=== PATIENT | female | born 1990 | race Caucasian/White ===

== ENCOUNTER 2016-11-06 18:37 | Inpatient (IN) | payer MEDICAID ==
[2016-11-06] VITALS (47 sets, daily range): BP systolic 92–152; BP diastolic 58–107; PULSE 65–94; RESP 18
[~2016-11-06 18:37] MED LIST: ACYC400T PO; PREN1CAP28; VITATAB
[2016-11-06] MEDS ORDERED: LACTATED RINGER'S 1000 ML INJ 1,000 ML IV PRN (19:34)
--- NOTE | 2016-11-06 19:34 | HHI.HP ---
History & Physical H&P Travel History International Travel<30 Days: No Contact w/Intl Traveler<30Days: No Known Affected Area: No History of Present Illness HPI Patient is a 26-year-old 2 para 1 patient's EDC is November 04, 2016 presently at 40 weeks and 2 days she presents with the chief complaint of irregular contractions she was seen in the office today where she was 5 cm presently now she is 6 cm 70% effaced at a -2 station vertex presentation membranes are intact care with care for women her problem list includes HSV she was placed on acyclovir prophylaxis at 36 weeks presently has no lesions in her at last outbreak was December 2007 She is Rh- and received RhoGAM at 28 weeks Ascus Pap Abnormal one-hour GTT three-hour was normal GBS is negative History (Limited) History Past Medical History Narrative Medical No known drug allergies no major medical problems Obstetric History Obstetric History First baby was born August [id number] at 40 weeks 7 lbs. 6 oz. male infant in labor for 15 hours uncomplicated Past Surgical History Surgical History: No Previous Surgery Family History Family History: Negative Social History Alcohol Use: No Tobacco Use: Yes Substance Abuse: No Allergies-Medications Allergies-Medications (Allergen,Severity, Reaction): Coded Allergies: No Known Allergies (Unverified , 11/06/16) Home Meds Active Scripts Acyclovir 400 Mg [id number] Mg PO BID #60 TAB Ref 4 Prov:Danyell Perez 09/25/16 Reported Medications Mv & Min W/Fe Fumarat ( Multi + Dha 27-0.8-250 mg)1 Cap Cap 08/28/16 Iron W/ Vitamins (Vitafol)1 Tab Tab 08/28/16 ROS Review of Systems Gastrointestinal: Abdominal Pain (irregular contractions) Physical Exam Physical Exam Narrative GENERAL: Well-nourished, well-developed patient. Alert oriented 3 and cooperative in moderate distress secondary to uterine contractions SKIN: Warm and dry. HEAD: Normocephalic and atraumatic. EYES: No scleral icterus. No injection or drainage. Conjunctiva was pink ENT: No nasal drainage noted. Mucous membranes pink. Airway patent. Tongue ring present NECK: Supple, trachea midline. No JVD. CARDIOVASCULAR: Regular rate and rhythm without murmurs, gallops, or rubs. RESPIRATORY: Breath sounds equal bilaterally. No accessory muscle use. ABDOMEN/GI: Gravid term estimated weight 7-1/2 pounds Gravid to [-] weeks size term Fundal Height: [-] GENITOURINARY: External Genitalia: intact and normal in appearance BUS glands: [-] Cervix: [-] Midline Dilatation: [-] 6 cm Effacement: [-] 50% effaced Station: [-] -2 station Presentation: [-] Vertex Membranes: [intact Uterine Contractions: [-] Irregular FHT's: Category: [-] 1 Baseline: [-]140 Reactive: [-] + Variability: [-] Moderate variability Decels: [-] Patient very active will reevaluate for decelerations EXTREMITIES: No cyanosis or edema. 2+ reflexes NEUROLOGICAL: Awake and alert. Motor and sensory grossly within normal limits. Five out of 5 muscle strength in all muscle groups. Normal speech. Data Data Data Vital Signs Reviewed: Yes (123/82 she is afebrile) [facility] Medical Record Reviewed: Yes Interpretation(s) 26-year-old at 40 weeks and 2 days Active labor postdates Cigarette smoker History of HSV no active lesions Desires an epidural GBS is negative Plan Admit External monitoring IV fluid hydration CBC type and screen Possible Pitocin augmentation Anticipate vaginal delivery Diagnosis Diagnosis: Primary Impression: Post-dates , delivered, current hospitalization Additional Impressions: History of BAM positive for HSV Cigarette smoker one half pack a day or less Danielle Moise MD Nov 06, 2016 19:33 Danielle Moise MD Nov 06, 2016 19:34
[2016-11-06] MEDS ORDERED: ONDANSETRON HCL 4 MG/2 ML VIAL IV PRN (19:45)
[2016-11-06] MEDS ORDERED: CITRIC ACID-SODIUM CITRATE LIQ 30 ML UDC PO SCH (19:45)
[2016-11-06] MEDS ORDERED: SODIUM CHLORID 0.9% 500 ML INJ 500 ML IV PRN (19:45)
[2016-11-06] MEDS ORDERED: LIDOCAINE HCL 1% 50 ML VIAL I-DERMAL PRN (19:45)
[2016-11-06] MEDS ORDERED: LIDOCAINE HCL 1% 50 ML VIAL INFIL PRN (19:45)
[2016-11-06] MEDS ORDERED: MINERAL OIL 10 ML VIAL TOPICAL PRN (19:45)
[2016-11-06] MEDS ORDERED: OXYTOCIN 30 UNITS-500ML PREMIX 500 ML IV ONE (19:45)
[2016-11-06] MEDS ORDERED: SODIUM CHLOR 0.9% 1000 ML INJ 1,000 ML IV PRN (19:54)
[2016-11-06 19:58] LABS: AUTOMATED NEUTROPHIL # 9.4 TH/MM3 (1.8-7.7); BASOPHIL % 0.3 % (0.0-2.0); EOSINOPHIL # 0.2 TH/MM3 (0-0.4); EOSINOPHIL % 1.2 % (0.0-4.0); HEMATOCRIT 35.7 % (35.0-46.0); HEMO FLAGS DIFF FINAL; LYMPH % 17.9 % (9.0-44.0); LYMPHOCYTE # 2.3 TH/MM3 (1.0-4.8); MEAN CELL VOLUME 87.4 FL (80.0-100.0); MEAN CORPUSCULAR HEMOGLOBIN 29.7 PG (27.0-34.0); MONO % 8.6 % (0.0-8.0); PLATELET COUNT 227 TH/MM3 (150-450); RED BLOOD COUNT 4.09 MIL/MM3 (4.00-5.30); RED CELL DISTRIBUTION WIDTH 14.3 % (11.6-17.2); WHITE BLOOD COUNT 13.1 TH/MM3 (4.0-11.0)
[2016-11-06 20:15] LABS: BLOOD, URINE NEG (NEG); CALCIUM OXALATE CRYSTALS,URINE OCC /hpf; COMMENT (UR) CULT NOT INDICATED; CULTURE IF INDICATED CULT NOT INDICATED; GLUCOSE,URINE NEG (NEG); KETONE, URINE NEG (NEG); MUCUS URINE FEW /lpf (OCC); NITRITE,URINE NEG (NEG); PH, URINE 5.5 (5.0-8.5); SQUAMOUS EPITHELIAL CELL URINE 1 /hpf (0-5); URINE COLOR YELLOW (YELLW/STRAW)
[2016-11-06] MEDS ORDERED: fentaNYL 2MCG-BUPIV 0.125% INJ 100 ML ONE (20:22)
[2016-11-06] MEDS ORDERED: ePHEDrine/NS 50 MG/5 ML SYR IV PRN (21:30)
[2016-11-06] MEDS ORDERED: NO SYSTEM NARCOTICS XX PRN (21:30)
[2016-11-06] MEDS ORDERED: DO NOT ADMINISTER ANTICOAGULANTS XX PRN (21:30)
[2016-11-06] MEDS ORDERED: fentaNYL 2MCG-BUPIV 0.125% INJ 100 ML EPIDURAL SCH (21:30)
[2016-11-07] VITALS (10 sets, daily range): BP systolic 111–138; BP diastolic 63–98; PULSE 79–95; RESP 18
--- NOTE | 2016-11-07 00:39 | PD.OB.DELI ---
Delivery Date: Nov 07, 2016 Anesthesia: Epidural Episiotomy: None Vaginal Delivery: Normal Presentation: Occiput anterior Nuchal Cord: x1 Infant: Male One Minute : 8 Five Minute : 9 Weight: 3685 Care: Suctioned Placenta: Spontaneous delivery Laceration: No lacerations Additional Information Patient progressed to completely dilated completely effaced underwent artificial rupture of membranes clear fluid delivered over an intact perineum a viable male infant weight 8 lbs. 2 oz. Apgars of 8 at 1 minute 9 at 5 minutes Placenta delivered spontaneously and intact no lacerations Estimate blood loss 300 cc Sponge and instrument count were correct Uterus firm no active bleeding mother stable baby stable Danielle Moise MD Nov 07, 2016 00:39
[2016-11-07] MEDS ORDERED: SODIUM CHLORIDE 0.9% FLUSH 5 ML FLUSH IV PRN (00:45)
[2016-11-07] MEDS ORDERED: ZOLPIDEM TARTRATE 5 MG TAB PO PRN (00:45)
[2016-11-07] MEDS ORDERED: WITCH HAZEL 50%/GLYCERIN 12.5% 40 PAD JAR TOPICAL PRN (00:45)
[2016-11-07] MEDS ORDERED: ACETAMINOPHEN 325 MG TAB PO PRN (00:45)
[2016-11-07] MEDS ORDERED: ALUMINUM/MAGNESIUM/SIMETH 30 ML CUP PO PRN (00:45)
[2016-11-07] MEDS ORDERED: ONDANSETRON ODT 4 MG TAB PO PRN (00:45)
[2016-11-07] MEDS ORDERED: BENZOCAINE 20% TOPICAL SPRAY 60 ML CAN TOPICAL PRN (00:45)
[2016-11-07] MEDS ORDERED: DOCUSATE SODIUM 50 MG/SENNA 8.6 MG TAB PO PRN (00:45)
[2016-11-07] MEDS: LACTATED RINGER'S 1000 ML INJ 1,000 ML IV SCH ×2 (03:34→19:16)
--- NOTE | 2016-11-07 08:47 | HHI.OB ---
Subjective Post Day: 0 Remarks day #1. AFVSS overnight. Pain minimal. Decreased lochia. Denies dysuria. No breast tenderness. Appetite good. Breast and bottle feeding. No nausea or vomiting. Endorses flatus. Denies bowel movement. Ambulating well. Denies calf pain, shortness of breath, or cough. Otherwise, she is doing well this morning and has no other complaints. Objective Vitals/I&O Vital Signs Date Time Temp Pulse Resp B/P Pulse Ox O2 Delivery O2 Flow Rate FiO2 11/07/16 01:45 18 11/07/16 01:30 82 138/80 11/07/16 01:30 18 11/07/16 01:17 95 129/87 11/07/16 01:15 18 11/07/16 01:00 91 136/98 11/07/16 01:00 18 11/07/16 00:45 79 18 119/63 11/07/16 00:20 95 11/07/16 00:15 114/64 11/07/16 00:10 84 11/07/16 00:00 111/66 11/06/16 23:40 82 11/06/16 23:35 91 11/06/16 23:30 78 118/64 11/06/16 23:30 18 11/06/16 23:25 78 11/06/16 23:20 76 11/06/16 23:15 73 110/72 11/06/16 23:10 76 11/06/16 23:05 70 11/06/16 23:00 18 11/06/16 23:00 70 111/72 11/06/16 22:55 76 11/06/16 22:50 71 11/06/16 22:45 71 106/58 11/06/16 22:40 72 11/06/16 22:35 70 11/06/16 22:30 73 18 101/58 11/06/16 22:25 71 11/06/16 22:20 72 11/06/16 22:15 72 11/06/16 22:05 89 100/66 11/06/16 22:00 75 103/62 11/06/16 21:55 93 92/59 11/06/16 21:50 93 131/83 11/06/16 21:48 18 11/06/16 21:45 79 107/66 11/06/16 21:45 18 11/06/16 21:40 80 110/68 11/06/16 21:35 88 107/66 11/06/16 21:30 88 107/62 11/06/16 21:25 79 120/67 11/06/16 21:20 67 118/65 11/06/16 21:15 82 120/71 11/06/16 21:15 65 11/06/16 21:10 94 121/71 11/06/16 21:10 82 18 11/06/16 21:07 80 152/107 11/06/16 21:05 76 11/06/16 21:00 77 11/06/16 20:58 77 140/85 11/06/16 20:55 81 11/06/16 20:50 76 11/06/16 20:45 73 11/06/16 20:40 66 11/06/16 20:35 72 11/06/16 20:30 73 18 11/06/16 20:25 79 11/06/16 20:20 84 11/06/16 20:15 76 11/06/16 20:10 83 11/06/16 20:05 77 11/06/16 20:00 88 Objective Remarks GENERAL: Well-nourished, well-developed patient. CARDIOVASCULAR: Regular rate and rhythm without murmurs, gallops, or rubs. RESPIRATORY: Breath sounds equal bilaterally. No accessory muscle use. ABDOMEN/GI: Abdomen soft, non-tender. Fundus: Firm, non-tender at umbilicus. GENITOURINARY: Light to moderate bleeding. EXTREMITIES: No cyanosis or edema, non-tender, without signs of DVT. Medications and IVs Current Medications Medications (Trade) Dose Ordered Sig/Carol Ann Route Start Time Stop Time Status Last Admin Lactated Ringer's 1,000 ml @ 125 mls/hr Q8H IV 11/06/16 19:34 Lactated Ringer's 1,000 ml @ 3,000 mls/hr Q20M PRN IV 11/06/16 19:34 Sodium Chloride 500 ml @ 1,000 mls/hr ONCE PRN IV 11/06/16 19:45 11/08/16 19:44 (NS 1000 ml Inj) 1,000 ml @ 100 mls/hr Q10H PRN IV 11/06/16 19:54 (Zofran Inj) 4 mg Q6H PRN IV 11/06/16 19:45 (fentaNYL INJ) 50 mcg Q1H PRN IV PUSH 11/06/16 19:45 (fentaNYL INJ) 100 mcg Q1H PRN IV PUSH 11/06/16 19:45 (Muri-Lube Oil) 10 ml UNSCH PRN TOPICAL 11/06/16 19:45 Miscellaneous Information No systemic narcotics to be given except... UNSCH PRN XX 11/06/16 21:30 11/07/16 21:29 Miscellaneous Information DO NOT ADMINISTER ANY ANTICOAGUL... UNSCH PRN XX 11/06/16 21:30 11/07/16 21:29 (fentaNYL 2MCG-BUPIV 0.125% INJ) 100 ml @ 0 mls/hr TITRATE EPIDURAL 11/06/16 21:30 (ePHEDrine/NS 50 MG/5 ML SYR) 10 mg UNSCH PRN IV 11/06/16 21:30 11/07/16 21:29 (NS Flush) 2 ml BID IV 11/07/16 09:00 (NS Flush) 2 ml UNSCH PRN IV 11/07/16 00:45 (Tylenol) 650 mg Q4H PRN PO 11/07/16 00:45 (Motrin) 600 mg Q6H PRN PO 11/07/16 00:45 (Americaine 20% Top Spr) 1 spray Q4H PRN TOPICAL 11/07/16 00:45 (Tucks Pads) 1 applic QID PRN TOPICAL 11/07/16 00:45 (Cathie-Colace) 2 tab Q12H PRN PO 11/07/16 00:45 (Ambien) 5 mg HS PRN PO 11/07/16 00:45 (M-M-R Ii Inj) 0.5 ml ONCE ONCE SQ 11/07/16 16:00 11/07/16 16:01 (Boostrix Inj) 0.5 ml ONCE ONCE IM 11/07/16 16:00 11/07/16 16:01 (Mag-Al Plus Susp Liq) 15 ml Q8H PRN PO 11/07/16 00:45 (Zofran Odt) 4 mg Q6H PRN PO 11/07/16 00:45 Assessment/Plan Assessment and Plan 26y/o who is PPD#1 s/p . -Continue routine care. -Percocet and Motrin PRN pain. -Encouraged OOB. Advised pelvic rest for 6 wks. -Will need a f/u appt. within 6 wks. -Re: ctrl, she is undecided -D/c in 1-2 more days. [facility] OB attending Discharge Planning 1-2 days Abhijit Todd MD R1 Nov 07, 2016 08:47
[2016-11-07] MEDS ORDERED: SODIUM CHLORIDE 0.9% FLUSH 5 ML FLUSH IV SCH (09:00)
[2016-11-07] MEDS: IBUPROFEN 600 MG TAB PO PRN ×2 (12:16→19:49)
[2016-11-07] MEDS ORDERED: MEASLES, MUMPS, RUBELLA VACCINE 0.5 ML VIAL SQ ONE (16:00)
[2016-11-07] MEDS ORDERED: DIPHTH/TETANUS/ACEL PERTUSSIS (BOOSTER) 0.5 ML VIAL/PFS IM ONE (16:00)
[2016-11-08] MEDS: LACTATED RINGER'S 1000 ML INJ 1,000 ML IV SCH (03:34)
[2016-11-08] MEDS: IBUPROFEN 600 MG TAB PO PRN (05:04)
[2016-11-08] MEDS ORDERED: SENN1TAB PO (07:02)
[2016-11-08] MEDS ORDERED: IBUP-232 PO (07:02)
--- NOTE | 2016-11-08 07:20 | HHI.OB ---
Subjective Remarks day #2. AFVSS overnight. Pain minimal. Decreased lochia. Denies dysuria. No breast tenderness. Appetite good. Breast and bottle feeding. No nausea or vomiting. Endorses flatus. Denies bowel movement. Ambulating well. Denies calf pain, shortness of breath, or cough. Otherwise, she is doing well this morning and has no other complaints. (Edwin Garrett MD R2) Objective Objective Remarks GENERAL: Well-nourished, well-developed patient. CARDIOVASCULAR: Regular rate and rhythm without murmurs, gallops, or rubs. RESPIRATORY: Breath sounds equal bilaterally. No accessory muscle use. ABDOMEN/GI: Abdomen soft, non-tender. Fundus: Firm, non-tender at umbilicus. GENITOURINARY: Light to moderate bleeding. EXTREMITIES: No cyanosis or edema, non-tender, without signs of DVT. Medications and IVs Current Medications Medications (Trade) Dose Ordered Sig/Carol Ann Route Start Time Stop Time Status Last Admin Lactated Ringer's 1,000 ml @ 125 mls/hr Q8H IV 11/06/16 19:34 Lactated Ringer's 1,000 ml @ 3,000 mls/hr Q20M PRN IV 11/06/16 19:34 Sodium Chloride 500 ml @ 1,000 mls/hr ONCE PRN IV 11/06/16 19:45 11/08/16 19:44 (NS 1000 ml Inj) 1,000 ml @ 100 mls/hr Q10H PRN IV 11/06/16 19:54 (Zofran Inj) 4 mg Q6H PRN IV 11/06/16 19:45 (fentaNYL INJ) 50 mcg Q1H PRN IV PUSH 11/06/16 19:45 (fentaNYL INJ) 100 mcg Q1H PRN IV PUSH 11/06/16 19:45 Mineral Oil 10 ml 10 ml UNSCH PRN TOPICAL 11/06/16 19:45 (fentaNYL 2MCG-BUPIV 0.125% INJ) 100 ml @ 0 mls/hr TITRATE EPIDURAL 11/06/16 21:30 (NS Flush) 2 ml BID IV 11/07/16 09:00 (NS Flush) 2 ml UNSCH PRN IV 11/07/16 00:45 (Tylenol) 650 mg Q4H PRN PO 11/07/16 00:45 (Motrin) 600 mg Q6H PRN PO 11/07/16 00:45 11/08/16 05:04 (Americaine 20% Top Spr) 1 spray Q4H PRN TOPICAL 11/07/16 00:45 (Tucks Pads) 1 applic QID PRN TOPICAL 11/07/16 00:45 (Cathie-Colace) 2 tab Q12H PRN PO 11/07/16 00:45 11/07/16 19:49 (Ambien) 5 mg HS PRN PO 11/07/16 00:45 (Mag-Al Plus Susp Liq) 15 ml Q8H PRN PO 11/07/16 00:45 (Zofran Odt) 4 mg Q6H PRN PO 11/07/16 00:45 (Edwin Garrett MD R2) Vitals/I&O Vital Signs Date Time Temp Pulse Resp B/P Pulse Ox O2 Delivery O2 Flow Rate FiO2 11/07/16 01:45 18 11/07/16 01:30 82 138/80 (Milagros Chicas MD) Assessment/Plan Assessment and Plan 26y/o who is PPD#2 s/p . -Continue routine care. -Percocet and Motrin PRN pain. -Encouraged OOB. Advised pelvic rest for 6 wks. -Will need a f/u appt. within 6 wks. -Re: ctrl, she is undecided -D/c today wdw OB attending (Edwin Garrett MD R2) Attending Attestation PPD #2 s/p Doing well PP precautions F/u with [facility] in 2 weeks Patient seen and examined. D/w Dr. Garrett and Dr. Todd (Milagros Chicas MD) Edwin Garrett MD R2 Nov 08, 2016 07:20 Milagros Chicas MD Nov 08, 2016 08:20
[2016-11-08 08:02] VITALS: BP 116/89; PULSE 78; RESP 16; TEMP 98.7
[2016-11-18] MEDS ORDERED: NORE1TAB60 PO (13:27)
== END 2016-11-08 13:57 | disposition home or self-care (01) | DRG 774 ==
LOC: HOBED 18:37 → H2EB 19:36 → H1EA 11-07 03:27
PROVIDERS: ADMIT Obstetrics & Gynecology; ATTEND Obstetrics & Gynecology
PROC: 3E0S3CZ (ICD-10-PCS; 2016-11-06)
PROC: 00HU33Z Insertion of Infusion Device into Spinal Canal, Percutaneous Approach (ICD-10-PCS; 2016-11-06)
PROC: 10E0XZZ Delivery of Products of Conception, External Approach (ICD-10-PCS; principal; 2016-11-07)
PROC: 10907ZC Drainage of Amniotic Fluid, Therapeutic from Products of Conception, Via Natural or Artificial Opening (ICD-10-PCS; 2016-11-07)
DX: O98.32 Other infections with a predominantly sexual mode of transmission complicating childbirth (principal); O36.0930 Maternal care for other rhesus isoimmunization, third trimester, not applicable or unspecified; A60.00 Herpesviral infection of urogenital system, unspecified; Z37.0 Single live birth; Z3A.40 40 weeks gestation of pregnancy; O48.0 Post-term pregnancy; O99.333 Smoking (tobacco) complicating pregnancy, third trimester; F17.210 Nicotine dependence, cigarettes, uncomplicated
CPT/HCPCS: 81001; 85025; 85461; 86850; 86900; 86901; 90384; 90715; 99285; J2790

== ENCOUNTER 2017-11-02 15:21 | Emergency (ER) | payer SELFPAY ==
[~2017-11-02] VITALS: Ht 167.6 cm; Wt 78.0 kg
[~2017-11-02 15:21] MED LIST changes: -ACYC400T PO; +NORE1TAB60 PO; -PREN1CAP28; -VITATAB
[2017-11-02 15:27] VITALS: BP 143/93; PULSE 77; RESP 18; TEMP 98; O2SAT 97
--- NOTE | 2017-11-02 16:12 | PD ---
Physical Exam Time Seen by Provider: 16:09 Narrative 27yo F c/o body aches, vomiting, headache, nasal congestion x a few hours. Denies fevers. Thinks she has the flu. + work exposure. +SOB at times. LMP 2 weeks ago. +risk of . Patient seen in triage. VS reviewed. Awaiting bed placement. See next providers note for final patient disposition. Data Data Last Documented VS Vital Signs Date Time Temp Pulse Resp B/P (MAP) Pulse Ox O2 Delivery O2 Flow Rate FiO2 11/02/17 15:27 98.0 77 18 143/93 (110) 97 Room Air Orders Orders Influenzae A/B Antigen (11/02/17 16:12) MDM Supervised Visit with PRIMITIVO: Floresita Winston Nov 02, 2017 16:12
[2017-11-02] MEDS ORDERED: OSEL75 PO (17:22)
[2017-11-02] MEDS ORDERED: ZOFR4TAB3 SL (17:22)
[2017-11-02] MEDS ORDERED: NAPR375T4 PO (17:22)
--- NOTE | 2017-11-02 17:22 | PD ---
HPI Chief Complaint: Cold / Flu Symptoms Time Seen by Provider: 17:09 Travel History International Travel<30 days: No Contact w/Intl Traveler<30days: No Traveled to known affect area: No History of Present Illness HPI c/o n/v/congestion, generalized body aches and dry cough that started over 3 hours ago, apparently exposed to flu positive person. here for further care. all:denies pmhx/pshx : denies PFSH Past Medical History ?: Unknown LMP: 10/20/17 : 5 Para: 1 Miscarriage: 2 : 1 Social History Alcohol Use: No Tobacco Use: Yes Substance Use: Yes (MARIJUANA USE IN THE PAST) Allergies-Medications (Allergen,Severity, Reaction): Coded Allergies: No Known Allergies (Unverified Adverse Reaction, Unknown, 11/02/17) Reported Meds & Prescriptions Reported Meds & Active Scripts Active Loestrin 1/20 (Norethindrone-Ethinyl Estradiol) 1-20 Mg-Mcg Tab 1 Tab PO DAILY Review of Systems Except as stated in HPI: all other systems reviewed are Neg General / Constitutional: No: Fever Eyes: No: Visual changes HENT: Positive: Sore Throat, Rhinorrhea Cardiovascular: No: Chest Pain or Discomfort Respiratory: Positive: Cough Gastrointestinal: Positive: Nausea, Vomiting Genitourinary: No: Dysuria Musculoskeletal: Positive: Myalgias, No: Pain Skin: No Rash Neurologic: No: Weakness Psychiatric: No: Depression Endocrine: No: Polydipsia Hematologic/Lymphatic: No: Easy Bruising Physical Exam Narrative GENERAL: SKIN: Warm and dry. HEAD: Atraumatic. Normocephalic. EYES: Pupils equal and round. No scleral icterus. No injection or drainage. ENT: No nasal bleeding or discharge. Mucous membranes pink and moist....clear rhinorrhea, erythematous oropharynx, NECK: Trachea midline. No JVD. CARDIOVASCULAR: Regular rate and rhythm. RESPIRATORY: No accessory muscle use. Clear to auscultation. Breath sounds equal bilaterally. GASTROINTESTINAL: Abdomen soft, non-tender, nondistended. MUSCULOSKELETAL: Extremities without clubbing, cyanosis, or edema. No obvious deformities. NEUROLOGICAL: Awake and alert. No obvious cranial nerve deficits. Motor grossly within normal limits. Five out of 5 muscle strength in the arms and legs. Normal speech. PSYCHIATRIC: Appropriate mood and affect; insight and judgment normal. Data Data Last Documented VS Vital Signs Date Time Temp Pulse Resp B/P (MAP) Pulse Ox O2 Delivery O2 Flow Rate FiO2 11/02/17 15:27 98.0 77 18 143/93 (110) 97 Room Air Orders Orders Influenzae A/B Antigen (11/02/17 16:12) Ed Urine Pregnancytest Poc (11/02/17 16:46) MDM Medical Decision Making Medical Screen Exam Complete: Yes Emergency Medical Condition: Yes Medical Record Reviewed: Yes Differential Diagnosis viral syndrome v pregn related v flu Narrative Course flu test negative but clincally symptoms c/w flu Diagnosis Primary Impression: flu Patient Instructions: General Instructions, Influenza (DC) Scripts Naproxen DR (Naproxen EC) 375 Mg Tabdr 375 MG PO BID, #20 TAB 0 Refills Prov: Roni Ceballos MD 11/02/17 Ondansetron Odt (Zofran Odt) 4 Mg Tab 4 MG SL Q6HR Y for Nausea/Vomiting, #20 TAB 0 Refills Prov: Roni Ceballos MD 11/02/17 Oseltamivir (Tamiflu) 75 Mg Cap 75 MG PO BID for Mgmt Viral Infection for 5 Days, #10 CAP 0 Refills Prov: Roni Ceballos MD 11/02/17 Disposition: 01 DISCHARGE HOME Condition: Stable Roni Ceballos MD Nov 02, 2017 17:22
[2017-11-02] MEDS ORDERED: ONDANSETRON ODT 4 MG TAB PO ONE (17:30)
[2017-11-02] MEDS ORDERED: KETOROLAC TROMETHAMINE 60 MG/2 ML (IM) VIAL IM ONE (17:30)
== END 2017-11-02 18:57 | disposition home or self-care (01) ==
LOC: NEPD 15:21
DX: J11.1 Influenza due to unidentified influenza virus with other respiratory manifestations (principal); R11.2 Nausea with vomiting, unspecified; Z79.899 Other long term (current) drug therapy; Z72.0 Tobacco use
CPT/HCPCS: 84703; 87804; 96372; 99284; J1885